=== PATIENT | female | born 1960 | race Caucasian/White ===

== ENCOUNTER 2016-09-13 06:14 | Day surgery (SDC) | payer MEDICAID ==
[~2016-09-13] VITALS: Ht 149.9 cm; Wt 44.1 kg
[~2016-09-13 06:14] MED LIST: ASPI-1061 PO; BECL8.7A5 IH; FLUT16SP2 NS; FLUT1DIS3 IH; IBUP-2070 PO; OMEP20 PO; PRED10TA3 PO; SALMH IH; TEMA30 PO
[2016-09-13] MEDS ORDERED: SODIUM CHLORIDE 0.9% 1,000 ML IV ONE ×2 (06:30→06:39)
[2016-09-13] MEDS ORDERED: ZOLP10 PO (06:56)
[2016-09-13] MEDS ORDERED: DOXY50CA7 PO (06:56)
[2016-09-13] MEDS ORDERED: MONT10TA21 PO (06:56)
[2016-09-13] MEDS ORDERED: ACET500C4 PO (06:56)
[2016-09-13] MEDS ORDERED: IPRA3AMP4 NEB (06:56)
[2016-09-13] MEDS ORDERED: ALBU8.5H IH (06:56)
[2016-09-13] MEDS ORDERED: GABA-531 PO (06:56)
[2016-09-13] MEDS ORDERED: BACL10TA PO (06:56)
[2016-09-13] MEDS ORDERED: ESCI10TA PO (06:56)
[2016-09-13] MEDS ORDERED: MIDAZOLAM HCL 2 MG/2 ML VIAL ONE (07:53)
[2016-09-13] MEDS ORDERED: FentaNYL CITRATE-PF 100 MCG/2 ML VIAL ONE (07:53)
[2016-09-13] MEDS ORDERED: MethylPREDNISolone SOD SUCC 125 MG/2 ML VIAL IVP ONE (08:45)
[2016-09-13] MEDS ORDERED: MethylPREDNISolone SOD SUCC 125 MG/2 ML VIAL ONE (09:16)
[2016-09-13] MEDS ORDERED: LIDOCAINE HCL 2% 30 ML JELLY TP ONE (16:45)
[2016-09-13] MEDS ORDERED: BENZOCAINE 20% 50 MCG/SPRAY 57 GM TP ONE (16:45)
[2016-09-13] MEDS ORDERED: LIDOCAINE HCL 4% 50 ML SOLUTION TP ONE (16:45)
[2016-09-13] MEDS ORDERED: OXYGEN THERAPY IH SCH (20:00)
== END 2016-09-13 10:05 | disposition home or self-care (01) ==
LOC: SURGERY 06:14
PROVIDERS: ATTEND Internal Medicine Critical Care Medicine
DX: J38.4 Edema of larynx (principal); B37.0 Candidal stomatitis; F32.9 Major depressive disorder, single episode, unspecified; F41.9 Anxiety disorder, unspecified; F17.210 Nicotine dependence, cigarettes, uncomplicated; Z72.89 Other problems related to lifestyle; Z79.82 Long term (current) use of aspirin; Z98.890 Other specified postprocedural states; Z98.51 Tubal ligation status
CPT/HCPCS: 31623; 31624; 71010; 87015 ×2; 87070; 87101; 87147; 87205; 87220; 88108; 88184; 88185; 88312; 94640; J2250; J2930; J3010; J7030